=== PATIENT | female | born 2000 | race Caucasian/White ===

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

== ENCOUNTER 2020-10-13 23:49 | Emergency (ER) | payer MEDICAID, SELFPAY ==
[~2020-10-13] VITALS: Ht 165.1 cm; Wt 65.8 kg
[2020-10-13 23:55] VITALS: BP_SYST 142
[2020-10-14] MEDS ORDERED: IBUP-1969 PO (00:25)
[2020-10-14 00:30] VITALS: BP_SYST 122
== END 2020-10-14 00:30 | disposition home or self-care (01) ==
LOC: SED 23:49
DX: R07.89 Other chest pain (principal)
CPT/HCPCS: 93005; 99283